=== PATIENT | female | born 1985 | race Caucasian/White ===

== ENCOUNTER 2017-01-27 03:24 | Emergency (ER) | payer BC ==
[2017-01-27 03:57] VITALS: BP 121/88
[2017-01-27] MEDS ORDERED: Sodium Chloride 0.9% 500 ML IV ONE (04:38)
--- NOTE | 2017-01-27 05:30 | EDM.PDOC ---
ED HPI RENAL/ - General Chief Complaint: Abdominal Pain Stated Complaint: LOWER ABDOMINAL PAIN Time Seen by Provider: 01/27/17 03:56 Source of Information: Reports: Patient, RN notes reviewed History Limitations: Reports: No limitations - History of Present Illness INITIAL COMMENTS - FREE TEXT/NARRATIVE: The patient states that she has had suprapubic pain, along with low back pain, urinary frequency and urinary urgency, for the past few weeks. A urinalysis was performed on 01/15/2017, which was reportedly dilute, as the patient had been drinking a lot of cranberry juice. No treatment was given. She then saw Svitlana Eckert this past 01/22/2017. An ultrasound was performed, although the patient does not have the results. The patient's symptoms have persisted. She took ibuprofen tonight, which did not help. She states that she has some dysuria, along with the urinary frequency and urgency. No recent fever, however, she has had chills. She had some nausea and vomiting tonight. She also had some diarrhea. No prior similar symptoms. - Related Data Allergies/ADRs: Allergies Allergy/AdvReac Type Severity Reaction Status Date / Time No Known Allergies Allergy Verified 01/27/17 03:57 Home Meds: Home Meds Acetaminophen [Tylenol] 650 mg PO Q4H PRN #50 tablet 07/12/14 [Rx] Docusate Sodium [Colace] 100 mg PO BID PRN #50 cap 07/12/14 [Rx] Ibuprofen [Motrin] 200 mg PO Q6H PRN #50 tablet 07/12/14 [Rx] Vit with Ca/FA/Iron [ Plus Iron] 1 each PO DAILY #100 tablet [Rx] Phenazopyridine [Pyridium] 100 mg PO BID #5 tablet 01/27/17 [Rx] Past Medical History - Past Surgical History HEENT Surgical History: Reports: Oral surgery (Marvin teeth extraction) Social & Family History - Tobacco Use Smoking Status *Q: Never Smoker Second Hand Smoke Exposure: No - Alcohol Use Alcohol Use History: No - Recreational Drug Use Recreational Drug Use: No - Living Situation & Occupation Living situation: Reports: , with spouse, with family (1 child) Occupation: employed (legal administrative secretary) ED ROS GENERAL - Review of Systems Review Of Systems: See Below Constitutional: Reports: no symptoms HEENT: Reports: No symptoms Respiratory: Reports: No Symptoms Cardiovascular: Reports: No symptoms Endocrine: Reports: no symptoms GI/Abdominal: Reports: No symptoms : Reports: dysuria, frequency, urgency. Denies: flank pain, hematuria Musculoskeletal: Reports: no symptoms Skin: Reports: no symptoms Neurological: Reports: No Symptoms Psychiatric: Reports: No symptoms Hematologic/Lymphatic: Reports: no symptoms Immunologic: Reports: no symptoms ED EXAM, RENAL/ - Physical Exam Exam: See Below Exam Limited By: No limitations General Appearance: alert, WD/WN, moderate distress (Appears uncomfortable) Respiratory/Chest: no respiratory distress, lungs clear, normal breath sounds, no accessory muscle use Cardiovascular: normal peripheral pulses, regular rate, rhythm, no edema, no gallop, no JVD, no murmur, no rub GI/Abdominal: normal bowel sounds, soft, no organomegaly, no distention, no abnormal bruit, no mass, tender (Mild to moderate, suprapubic only. Nontender elsewhere.) Back Exam: normal inspection, full range of motion. No: CVA tenderness (L), CVA tenderness (R) Course - Vital Signs Last Recorded V/S: Last Vital Signs Temp 36.6 C 01/27/17 03:53 Pulse 77 01/27/17 03:53 Resp 16 01/27/17 03:53 BP 121/88 01/27/17 03:53 Pulse Ox 100 01/27/17 03:53 - Orders/Labs/Meds Orders: Active Orders 24 hr Category Date Time Status Phenazopyridine [Pyridium] Med 01/27/17 07:12 Stat 100 mg PO ONETIME STA Labs: Laboratory Tests 01/27/17 01/27/17 Range/Units 05:25 05:25 Urine Color Yellow (Yellow) Urine Appearance Clear (Clear) Urine pH 6.5 (5.0-8.0) Ur Specific [place] 1.015 (1.005-1.030) Urine Protein Negative (Negative) Urine Glucose (UA) Negative (Negative) Urine Ketones Negative (Negative) Urine Occult Blood 2+ H (Negative) Urine Nitrite Negative (Negative) Urine Bilirubin Negative (Negative) Urine Urobilinogen 0.2 (0.2-1.0) Ur Leukocyte Esterase Negative (Negative) Urine RBC 5-10 H (0-5) /hpf Urine WBC Not seen (0-5) /hpf Ur Epithelial Cells 0-5 (0-5) /hpf Urine Bacteria Rare (FEW) /hpf Urine Mucus Not seen (FEW) /hpf Urine Yeast Not seen (NOT SEEN) Urine HCG, Qual Negative (NEGATIVE) Meds: Medications Discontinued Medications Generic Name Dose Route Start Last Admin Trade Name Arianne PRN Reason Stop Dose Admin Sodium Chloride 500 mls @ 1,000 mls/hr 01/27/17 04:38 01/27/17 04:43 Normal Saline IV 01/27/17 05:07 1,000 mls/hr .BOLUS ONE Administration - Re-Assessments/Exams Free Text/Narrative Re-Assessment/Exam: 01/27/17 07:12 Test results discussed with the patient and her . The patient's urinalysis is unremarkable. She does not have a UTI. I suspect that the patient has interstitial cystitis. For today's purposes, I will start her on Pyridium, and refer her to urology for definitive evaluation and diagnosis. Departure - Departure Time of Disposition: 07:13 Disposition: Home, Self-Care 01 Condition: fair Clinical Impression: Interstitial cystitis Referrals: Svitlana Eckert NP [Primary Care Provider] - George Gooden MD [Physician] - Forms: ED Department Discharge Additional Instructions: You were seen in the emergency room today for urinary urgency, dysuria, and frequency, along with suprapubic and low back pain. Workup in the ER included a bladder scan, urinalysis, and urine test. Your workup was unremarkable. You do not have a urinary tract infection. You are not . You MOST LIKELY have a condition called interstitial cystitis, where it feels like you have a urinary tract infection, but you do not. You have been started on a medicine called Pyridium, which should ease in your symptoms. Take one tablet every 12 hours, as prescribed. Stay adequately hydrated. Followup with the Urologist Dr. Gooden at the next available appointment. If any other problems, please do not hesitate to return to the ER. - My Orders Last 24 Hours: My Active Orders 01/27/17 07:12 Phenazopyridine [Pyridium] 100 mg PO ONETIME STA - Assessment/Plan Last 24 Hours: My Active Orders 01/27/17 07:12 Phenazopyridine [Pyridium] 100 mg PO ONETIME STA
[2017-01-27] MEDS ORDERED: Phenazopyridine 100 MG Tab PO STA (07:12)
[2017-01-27] MEDS ORDERED: Phenazopyridine 95 MG Tab ONE (07:27)
[2017-01-27] MEDS: Phenazopyridine 95 MG Tab PO SCH (07:28)
== END 2017-01-27 07:31 | disposition home or self-care (01) ==
LOC: JD.ED 03:24
DX: N30.10 Interstitial cystitis (chronic) without hematuria (principal); Z98.890 Other specified postprocedural states; Z79.899 Other long term (current) drug therapy
CPT/HCPCS: 81001; 81025; 96360; 96361; 99284; A9270; J7040; P9612; 99283

== ENCOUNTER 2018-05-09 04:37 | Emergency (ER) | payer BC, OTHER ==
[2018-05-09 04:48] VITALS: BP 140/93
[2018-05-09] MEDS ORDERED: Ondansetron 4 MG/2 ML SDV IVPUSH ONE (04:49)
[2018-05-09] MEDS ORDERED: Sodium Chloride 0.9% 10 ML Syringe FLUSH PRN (04:49)
[2018-05-09] MEDS ORDERED: HYDROmorphone 0.5 MG/0.5 ML SYRINGE IVPUSH ONE ×2 (04:50→06:57)
[2018-05-09] MEDS ORDERED: Ketorolac 30 MG/ML SDV IVPUSH ONE (04:50)
[2018-05-09] MEDS ORDERED: Sodium Chloride 0.9% 1,000 ML IV SCH (05:00)
--- NOTE | 2018-05-09 06:28 | EDM.PDOC ---
ED HPI GENERAL MEDICAL PROBLEM - General Chief Complaint: Flank Pain Stated Complaint: POSS KIDNEY STONE Time Seen by Provider: 05/09/18 04:49 Source of Information: Reports: Patient History Limitations: Reports: No Limitations - History of Present Illness INITIAL COMMENTS - FREE TEXT/NARRATIVE: The patient presents with left flank pain. She had some hematuria for a couple days and now this morning she woke up with left flank pain that radiates to her left lower abdomen. She has nausea but no vomiting. She has no dysuria. She had a kidney stone about a year ago on the right and she needed intervention. She has no fever, chills, cough, or chest pain. Onset: Sudden Duration: Minutes: Location: Reports: Back (Left flank) Quality: Reports: Sharp Severity: Moderate Improves with: Reports: None Worsens with: Reports: None Associated Symptoms: Reports: Nausea/Vomiting. Denies: Shortness of Breath Left Flank Pain Score (Numeric/FACES): 8 - Related Data Allergies Allergy/AdvReac Type Severity Reaction Status Date / Time No Known Allergies Allergy Verified 05/09/18 04:43 Home Meds: Home Meds Tamsulosin HCl [Flomax] 0.4 mg PO DAILY #7 cap.er.24h 05/09/18 [Rx] oxyCODONE HCl/Acetaminophen [Percocet 5-325 mg Tablet] 1 - 2 each PO Q6HR PRN # 20 tablet 05/09/18 [Rx] Past Medical History - Past Surgical History HEENT Surgical History: Reports: Oral Surgery Female Surgical History: Reports: Kidney stone extraction, Lithotripsy/ESWL Social & Family History - Tobacco Use Smoking Status *Q: Never Smoker - Living Situation & Occupation Living situation: Reports: , with Spouse, with Family Occupation: Employed ED ROS GENERAL - Review of Systems Review Of Systems: See Below Constitutional: Reports: No Symptoms HEENT: Reports: No Symptoms Respiratory: Reports: No Symptoms Cardiovascular: Reports: No Symptoms Endocrine: Reports: No Symptoms GI/Abdominal: Reports: Abdominal Pain, Nausea. Denies: Vomiting : Reports: Flank Pain (Left) ED EXAM, RENAL/ - Physical Exam Exam: See Below Exam Limited By: No Limitations General Appearance: Alert, No Apparent Distress Ears: Normal External Exam Nose: Normal Inspection Head: Atraumatic, Normocephalic Neck: Normal Inspection Respiratory/Chest: No Respiratory Distress, Lungs Clear, Normal Breath Sounds Cardiovascular: Regular Rate, Rhythm, No Edema, No Murmur GI/Abdominal: Soft, Non-Tender, No Organomegaly, No Mass Back Exam: CVA Tenderness (L) (Mild) Extremities: Normal Inspection Neurological: Alert, Oriented, No Motor/Sensory Deficits Course - Vital Signs Last Recorded V/S: Last Vital Signs Temp 97.4 F 05/09/18 04:44 Pulse 77 05/09/18 04:44 Resp 18 05/09/18 04:44 BP 140/93 H 05/09/18 04:44 Pulse Ox 100 05/09/18 04:44 - Orders/Labs/Meds Orders: Active Orders 24 hr Category Date Time Status Peripheral IV Care [RC] . DIRECTED Care 05/09/18 04:50 Active Abdomen Pelvis wo Cont [CT] Stat Exams 05/09/18 04:49 Taken UA W/MICROSCOPIC [URIN] Stat Lab 05/09/18 05:20 Ordered HYDROmorphone [Dilaudid] Med 05/09/18 06:57 Once 0.5 mg IVPUSH ONETIME ONE Sodium Chloride 0.9% [Normal Saline] 1,000 ml Med 05/09/18 05:00 Active IV ASDIRECTED Sodium Chloride 0.9% [Saline Flush] Med 05/09/18 04:49 Active 10 ml FLUSH ASDIRECTED PRN ED Antiemetic Medication Reflex [OM.PC] Stat Oth 05/09/18 04:49 Ordered Peripheral IV Insertion Adult [OM.PC] Stat Oth 05/09/18 04:49 Ordered Medication Orders Sodium Chloride (Normal Saline) 1,000 mls @ 125 mls/hr IV ASDIRECTED JUDE Last Admin: 05/09/18 05:09 Dose: 125 mls/hr Sodium Chloride (Saline Flush) 10 ml FLUSH ASDIRECTED PRN PRN Reason: Keep Vein Open Last Admin: 05/09/18 05:09 Dose: 10 ml Labs: Laboratory Tests 05/09/18 05/09/18 05/09/18 Range/Units 05:05 05:20 05:35 WBC (3.98-10.04) K/mm3 RBC (3.98-5.22) M/mm3 Hgb (11.2-15.7) gm/L Hct (34.1-44.9) % MCV (79.4-94.8) fl MCH (25.6-32.2) pg MCHC (32.2-35.5) g/dl RDW Std Deviation (36.4-46.3) fL Plt Count (182-369) K/mm3 MPV (9.4-12.3) fl Neut % (Auto) (34.0-71.1) % Lymph % (Auto) (19.3-51.7) % [place] % (Auto) (4.7-12.5) % Eos % (Auto) (0.7-5.8) Baso % (Auto) (0.1-1.2) % Neut # (Auto) (1.56-6.13) K/mm3 Lymph # (Auto) (1.18-3.74) K/mm3 [place] # (Auto) (0.24-0.36) K/mm3 Eos # (Auto) (0.04-0.36) K/mm3 Baso # (Auto) (0.01-0.08) K/mm3 Sodium 139 (136-145) mEq/L Potassium 3.5 (3.5-5.1) mEq/L Chloride 104 (98-107) mEq/L Carbon Dioxide 28 (21-32) mEq/L Anion Gap 10.5 (5-15) BUN 19 H (7-18) mg/dL Creatinine 1.0 (0.55-1.02) mg/dL Est Cr Clr Drug Dosing 74.21 mL/min Estimated GFR (MDRD) > 60 (>60) mL/min BUN/Creatinine Ratio 19.0 H (14-18) Glucose 105 (74-106) mg/dL Calcium 8.7 (8.5-10.1) mg/dL Total Bilirubin 0.3 (0.2-1.0) mg/dL AST 15 (15-37) U/L ALT 17 (14-59) U/L Alkaline Phosphatase 50 (46-116) U/L Total Protein 7.6 (6.4-8.2) g/dl Albumin 3.8 (3.4-5.0) g/dl Globulin 3.8 gm/dL Albumin/Globulin Ratio 1.0 (1-2) Lipase 150 (73-393) U/L HCG, Qual Negative (NEGATIVE) Urine Color Yellow (Yellow) Urine Appearance Slt cloudy H (Clear) Urine pH 6.0 (5.0-8.0) Ur Specific [place] 1.025 (1.005-1.030) Urine Protein 1+ H (Negative) Urine Glucose (UA) Negative (Negative) Urine Ketones Negative (Negative) Urine Occult Blood 3+ H (Negative) Urine Nitrite Negative (Negative) Urine Bilirubin Negative (Negative) Urine Urobilinogen 0.2 (0.2-1.0) Ur Leukocyte Esterase Trace H (Negative) Urine RBC 75-100 H (0-5) /hpf Urine WBC 0-5 (0-5) /hpf Ur Epithelial Cells 0-5 (0-5) /hpf Urine Bacteria Moderate H (FEW) /hpf Urine Mucus Moderate H (FEW) /hpf Urinalysis Comment 05/09/18 Range/Units 05:39 WBC 11.65 H (3.98-10.04) K/mm3 RBC 4.58 (3.98-5.22) M/mm3 Hgb 13.5 (11.2-15.7) gm/L Hct 39.7 (34.1-44.9) % MCV 86.7 (79.4-94.8) fl MCH 29.5 (25.6-32.2) pg MCHC 34.0 (32.2-35.5) g/dl RDW Std Deviation 38.3 (36.4-46.3) fL Plt Count 271 (182-369) K/mm3 MPV 9.8 (9.4-12.3) fl Neut % (Auto) 68.5 (34.0-71.1) % Lymph % (Auto) 22.6 (19.3-51.7) % [place] % (Auto) 6.1 (4.7-12.5) % Eos % (Auto) 2.6 (0.7-5.8) Baso % (Auto) 0.2 (0.1-1.2) % Neut # (Auto) 7.99 H (1.56-6.13) K/mm3 Lymph # (Auto) 2.63 (1.18-3.74) K/mm3 [place] # (Auto) 0.71 H (0.24-0.36) K/mm3 Eos # (Auto) 0.30 (0.04-0.36) K/mm3 Baso # (Auto) 0.02 (0.01-0.08) K/mm3 Sodium (136-145) mEq/L Potassium (3.5-5.1) mEq/L Chloride (98-107) mEq/L Carbon Dioxide (21-32) mEq/L Anion Gap (5-15) BUN (7-18) mg/dL Creatinine (0.55-1.02) mg/dL Est Cr Clr Drug Dosing mL/min Estimated GFR (MDRD) (>60) mL/min BUN/Creatinine Ratio (14-18) Glucose (74-106) mg/dL Calcium (8.5-10.1) mg/dL Total Bilirubin (0.2-1.0) mg/dL AST (15-37) U/L ALT (14-59) U/L Alkaline Phosphatase (46-116) U/L Total Protein (6.4-8.2) g/dl Albumin (3.4-5.0) g/dl Globulin gm/dL Albumin/Globulin Ratio (1-2) Lipase (73-393) U/L HCG, Qual (NEGATIVE) Urine Color (Yellow) Urine Appearance (Clear) Urine pH (5.0-8.0) Ur Specific [place] (1.005-1.030) Urine Protein (Negative) Urine Glucose (UA) (Negative) Urine Ketones (Negative) Urine Occult Blood (Negative) Urine Nitrite (Negative) Urine Bilirubin (Negative) Urine Urobilinogen (0.2-1.0) Ur Leukocyte Esterase (Negative) Urine RBC (0-5) /hpf Urine WBC (0-5) /hpf Ur Epithelial Cells (0-5) /hpf Urine Bacteria (FEW) /hpf Urine Mucus (FEW) /hpf Urinalysis Comment Meds: Medications Generic Name Dose Route Start Last Admin Trade Name Freq PRN Reason Stop Dose Admin Sodium Chloride 1,000 mls @ 125 mls/hr 05/09/18 05:00 05/09/18 05:09 Normal Saline IV 125 mls/hr ASDIRECTED JDUE Administration Sodium Chloride 10 ml 05/09/18 04:49 05/09/18 05:09 Saline Flush FLUSH 10 ml ASDIRECTED PRN Administration Keep Vein Open Discontinued Medications Generic Name Dose Route Start Last Admin Trade Name Freq PRN Reason Stop Dose Admin Hydromorphone HCl 0.5 mg 05/09/18 04:50 05/09/18 05:09 Dilaudid IVPUSH 05/09/18 04:51 0.5 mg ONETIME ONE Administration Ketorolac Tromethamine 30 mg 05/09/18 04:50 05/09/18 05:08 Toradol IVPUSH 05/09/18 04:51 30 mg ONETIME ONE Administration Ondansetron HCl 4 mg 05/09/18 04:49 05/09/18 05:08 Zofran IVPUSH 05/09/18 04:50 4 mg ONETIME ONE Administration - Re-Assessments/Exams Free Text/Narrative Re-Assessment/Exam: 05/09/18 06:33 I ordered an IV NS at 125ml/hr, zofran 4mg IV, dilaudid 0.5mg IV, toradol 30mg IV, labs, UA, and a CT of her abdomen and pelvis without contrast to look for a stone. Her WBC was a little elevated at 11.65. Her CMP was negative. Her HCG is negative. Her lipase was normal. He UA has blood but no UTI. Her CT shows mild left hydronephrosis with an obstructing 5mm stone in the distal ureter at the UVJ. 05/09/18 06:58 She is having more pain so I ordered dilaudid 0.5mg IV. I will get her on some flomax and percocet. She saw Dr Rivera before a urologist at [facility]. I will have her call his office and I will send the scans to [facility]. Departure - Departure Time of Disposition: 07:00 Disposition: Home, Self-Care 01 Condition: Good Clinical Impression: Ureteric colic, Ureteric calculus, Kidney stone on left side - Discharge Information Prescriptions: oxyCODONE HCl/Acetaminophen [Percocet 5-325 mg Tablet] 1 - 2 each PO Q6HR PRN # 20 tablet PRN Reason: Pain Tamsulosin HCl [Flomax] 0.4 mg PO DAILY #7 cap.er.24h Referrals: Svitlana Eckert NP [Primary Care Provider] - Cristopher Rivera MD [Ordering Only Provider] - Forms: ED Department Discharge Additional Instructions: Take the percocet every 6 hours as needed for pain. Take the flomax daily. Drink plenty of fluids. Call Dr Rivera's office today to make an appointment. I sent your scan to [facility] Arred[facility] so he can look at it. Pleas return if you are worse. - My Orders Last 24 Hours: My Active Orders 05/09/18 04:49 Abdomen Pelvis wo Cont [CT] Stat Sodium Chloride 0.9% [Saline Flush] 10 ml FLUSH ASDIRECTED PRN ED Antiemetic Medication Reflex [OM.PC] Stat Peripheral IV Insertion Adult [OM.PC] Stat 05/09/18 04:50 Peripheral IV Care [RC] . DIRECTED 05/09/18 05:00 Sodium Chloride 0.9% [Normal Saline] 1,000 ml IV ASDIRECTED 05/09/18 05:20 UA W/MICROSCOPIC [URIN] Stat 05/09/18 06:57 HYDROmorphone [Dilaudid] 0.5 mg IVPUSH ONETIME ONE - Assessment/Plan Last 24 Hours: My Active Orders 05/09/18 04:49 Abdomen Pelvis wo Cont [CT] Stat Sodium Chloride 0.9% [Saline Flush] 10 ml FLUSH ASDIRECTED PRN ED Antiemetic Medication Reflex [OM.PC] Stat Peripheral IV Insertion Adult [OM.PC] Stat 05/09/18 04:50 Peripheral IV Care [RC] . DIRECTED 05/09/18 05:00 Sodium Chloride 0.9% [Normal Saline] 1,000 ml IV ASDIRECTED 05/09/18 05:20 UA W/MICROSCOPIC [URIN] Stat 05/09/18 06:57 HYDROmorphone [Dilaudid] 0.5 mg IVPUSH ONETIME ONE
--- NOTE | 2018-05-09 07:08 | CT ---
CT abdomen and pelvis Technique: Multiple axial sections were obtained from above the dome of the diaphragm inferiorly through the pubic symphysis. Intravenous and oral contrast not utilized. Study has been performed as a ureteral stone protocol. Comparison: Prior CT abdomen and pelvis exam of 02/06/17 is available. Findings: Left-sided dilated ureter is seen. This finding is cause by 4 mm obstructing stone within the distal left ureter close to the UVJ. No other abnormal ureteral calculi are seen. Very small nonobstructing stone is noted within the mid to lower left kidney. No other renal calculi are seen. Visualized lung bases are clear. Calcified granuloma noted within the right lobe of the liver which is stable. Liver shows no additional abnormality. Spleen appears normal. Adrenal glands show no nodule. Pancreas shows no discrete abnormality. Gallbladder contains no calcified gallstones. Aorta shows no aneurysmal dilatation. No retroperitoneal adenopathy or mesenteric abnormalities are seen. No pelvic mass or adenopathy is seen. Fluid seen within the pelvis believed to be physiologic. No inflammatory change is seen. Appendix is seen which is normal in size. Bone window settings were reviewed which appear within normal limits for the patient's age. Impression: 1. 4 mm obstructing stone within the distal left ureter close to the UVJ. 2. Very small nonobstructing stone within the mid to lower left kidney. 3. Other incidental findings. Diagnostic code #3 Agree with preliminary report issued by [employer] ([facility] preliminary report dictated on 05/09/18, 7:15 AM Central Time)
== END 2018-05-09 07:30 | disposition home or self-care (01) ==
LOC: JD.ED 04:37
DX: N13.2 Hydronephrosis with renal and ureteral calculous obstruction (principal); Z79.899 Other long term (current) drug therapy
CPT/HCPCS: 36415; 74176; 80053; 81001; 83690; 84703; 85025; 96361; 96374; 96375; 96376; 99284; J1170; J1885; J2405; J7040; J7050

== ENCOUNTER 2019-10-29 12:06 | Inpatient (IN) | payer OTHER ==
[~2019-10-29 12:06] MED LIST: Bupivacaine 0.25% 10 ML SDV ONE
[2019-10-29] MEDS ORDERED: Nalbuphine 10 MG/1 ML Vial IVPUSH PRN (12:52)
[2019-10-29] MEDS ORDERED: Sodium Chloride 0.9% 10 ML Syringe FLUSH PRN (12:52)
[2019-10-29] MEDS ORDERED: Calcium Carbonate 500 MG Tab.Chew PO PRN (12:52)
[2019-10-29] MEDS ORDERED: Lidocaine 1% 50 ML MDV INJECT ONE (12:52)
[2019-10-29] MEDS ORDERED: Ondansetron 4 MG/2 ML SDV IVPUSH PRN ×2 (12:52→14:57)
[2019-10-29] MEDS ORDERED: Oxytocin/Lactated Ringers 10 UNIT/1,000 ML BAG IV SCH ×2 (13:00)
[2019-10-29] MEDS: Lactated Ringers 1,000 ML IV SCH ×2 (13:25→16:10)
[2019-10-29] MEDS ORDERED: fentaNYL/Bupivacaine/NS 2 MCG-0.125% 250 ML EPIDUR PRN (14:57)
[2019-10-29] MEDS ORDERED: ePHEDrine 50 MG/ML SDV IVPUSH PRN (14:57)
[2019-10-29] MEDS ORDERED: fentaNYL 100 MCG/2 ML SDV EPIDUR PRN (14:57)
--- NOTE | 2019-10-29 14:59 | PCM.PREANE ---
Preanesthetic Assessment - Anesthesia/Transfusion/Family Hx Anesthesia History: Prior Anesthesia Without Reaction Family History of Anesthesia Reaction: No Transfusion History: No Prior Transfusion(s) Intubation History: Unknown - Review of Systems General: No Symptoms Pulmonary: No Symptoms Cardiovascular: No Symptoms, Palpitations (with ), Dyspnea on Exertion (with ) Gastrointestinal: No Symptoms (GERD), Constipation Neurological: No Symptoms (back pain with ) Other: Reports: None, Easy Bruising, Depression, Anxiety - Physical Assessment NPO Status Date: 10/29/19 NPO Status Time: 15:30 Vital Signs: Last Vital Signs Temp 36.9 C 10/29/19 12:20 Pulse 75 10/29/19 12:20 Resp 16 10/29/19 12:20 BP 134/75 10/29/19 12:20 Pulse Ox 100 10/29/19 12:20 Height: 1.68 m Weight: 90.9 kg ASA Class: 2 Mental Status: Alert & Oriented x3 Airway Class: Mallampati = 2 Dentition: Reports: Normal Dentition, Caries Thyro-Mental Finger Breadths: 3 Mouth Opening Finger Breadths: 3 ROM/Head Extension: Full Lungs: Clear to Auscultation, Normal Respiratory Effort Cardiovascular: Regular Rate, Regular Rhythm, No Murmurs - Lab Values: Laboratory Last Values WBC 10.82 K/mm3 (3.98-10.04) H 10/29/19 13:10 RBC 4.32 M/mm3 (3.98-5.22) 10/29/19 13:10 Hgb 12.7 gm/dl (11.2-15.7) 10/29/19 13:10 Hct 37.6 % (34.1-44.9) 10/29/19 13:10 MCV 87.0 fl (79.4-94.8) 10/29/19 13:10 MCH 29.4 pg (25.6-32.2) 10/29/19 13:10 MCHC 33.8 g/dl (32.2-35.5) 10/29/19 13:10 RDW Std Deviation 40.6 fL (36.4-46.3) 10/29/19 13:10 Plt Count 197 K/mm3 (182-369) 10/29/19 13:10 MPV 10.7 fl (9.4-12.3) 10/29/19 13:10 Neut % (Auto) 74.1 % (34.0-71.1) H 10/29/19 13:10 Lymph % (Auto) 19.3 % (19.3-51.7) 10/29/19 13:10 [place] % (Auto) 5.5 % (4.7-12.5) 10/29/19 13:10 Eos % (Auto) 0.6 (0.7-5.8) L 10/29/19 13:10 Baso % (Auto) 0.2 % (0.1-1.2) 10/29/19 13:10 Neut # (Auto) 8.02 K/mm3 (1.56-6.13) H 10/29/19 13:10 Lymph # (Auto) 2.09 K/mm3 (1.18-3.74) 10/29/19 13:10 [place] # (Auto) 0.59 K/mm3 (0.24-0.36) H 10/29/19 13:10 Eos # (Auto) 0.07 K/mm3 (0.04-0.36) 10/29/19 13:10 Baso # (Auto) 0.02 K/mm3 (0.01-0.08) 10/29/19 13:10 Above labs reviewed and noted and within acceptable ranges to proceed with epidural if desired. - Allergies Allergies/Adverse Reactions: Allergies Allergy/AdvReac Type Severity Reaction Status Date / Time No Known Allergies Allergy Verified 10/29/19 13:06 - Acknowledgements Anesthesia Type Planned: Epidural Pt an Appropriate Candidate for the Planned Anesthesia: Yes Alternatives and Risks of Anesthesia Discussed w Pt/Guardian: Yes Pt/Guardian Understands and Agrees with Anesthesia Plan: Yes PreAnesthesia Questionnaire Gastrointestinal History: Reports: GERD Genitourinary History: Reports: Renal Calculus [employer]ATOR History: Reports: Psychiatric History: Reports: Anxiety, Depression, Other (See Below) Other Psychiatric History: history of depression - Past Surgical History HEENT Surgical History: Reports: Oral Surgery Female Surgical History: Reports: Kidney stone extraction, Lithotripsy/ESWL - SUBSTANCE USE Smoking Status *Q: Never Smoker Recreational Drug Use History: No - HOME MEDS Home Medications: Home Meds Folic Acid 0.4 mg PO BEDTIME 10/29/19 [History] [place]-3/DHA/Epa/Fish Oil [Fish Oil 1,000 mg Softgel] 1 each PO BEDTIME 10/29/19 [History] No122/Iron/Folic Acid [ Multi Tablet] 1 each PO BEDTIME [History] - CURRENT (IN HOUSE) MEDS Current Meds: Current Medications Calcium Carbonate/Glycine (Tums) 1,000 mg PO Q2H PRN PRN Reason: Indigestion Lactated Ringer's (Ringers, Lactated) 1,000 mls @ 100 mls/hr IV ASDIRECTED JUDE Last Admin: 10/29/19 13:25 Dose: 50 mls/hr Oxytocin/Lactated Ringer's (Pitocin In Lr 10 Units/1,000 Ml) 10 unit in 1,000 mls @ 12 mls/hr IV TITRATE JUDE; Protocol Last Titration: 10/29/19 14:32 Dose: 6 munits/min, 36 mls/hr Oxytocin/Lactated Ringer's (Pitocin In Lr 10 Units/1,000 Ml) 10 unit in 1,000 mls @ 500 mls/hr IV .CONTINUOUS JUDE Nalbuphine HCl (Nubain) 10 mg IVPUSH Q2H PRN PRN Reason: Pain Ondansetron HCl (Zofran) 4 mg IVPUSH Q4H PRN PRN Reason: Nausea/Vomiting Sodium Chloride (Saline Flush) 10 ml FLUSH ASDIRECTED PRN PRN Reason: Keep Vein Open Discontinued Medications Lidocaine HCl (Xylocaine 1%) 20 ml INJECT ONETIME ONE Stop: 10/29/19 12:53
--- NOTE | 2019-10-29 17:43 | PCM.SN ---
- Free Text/Narrative Note: Anesthesia Note: Anesthesia reassessed patient regarding right scapular numbness, along with some right breast numbness(minimal). Patient reminded to keep HOB up at all times, and to inform nurse if numbness becomes more dense. VSS, no contraction pain noted, patient otherwise stable and doing well. [employer]
[2019-10-29] MEDS ORDERED: Acetaminophen 325 MG Tab PO PRN (21:01)
[2019-10-29] MEDS ORDERED: Witch Hazel Medicated Pads 40/Jar TOP PRN (21:01)
[2019-10-29] MEDS ORDERED: Benzocaine/Menthol 20%-0.5% Spray 56 GM Canister TOP PRN (21:01)
[2019-10-29] MEDS ORDERED: Docusate Sodium 100 MG Cap PO PRN (21:01)
--- NOTE | 2019-10-29 21:07 | PCM.LDHP ---
L&D History of Present Illness - General Date of Service: 10/29/19 Admit Problem/Dx: Patient Status Order with Admit Dx/Problem 10/29/19 12:54 Patient Status [ADT] Routine Admission Diagnosis/Problem Admission Diagnosis/Problem Term 10/29/19 20:58 Desiree is a 34-year-old 2 para 1001 white female admitted for elective induction of labor at 40-3/7 weeks gestational age with an LYLE of 10/26/2019. Source of Information: Patient History Limitations: Reports: No Limitations - History of Present Illness Introduction:: Desiree is a 34-year-old 2 para 1001 white female admitted for elective induction of labor at 40-3/7 weeks gestational age with an LYLE of 10/26/2019. Upon admission her cervix was 2+ centimeters dilated, as 3 station, soft consistency, mid position 80% effaced, cephalic presentation with bulging bag of mason. She was started on Pitocin and bring the head against the cervix and then artificial rupture membranes was undertaken. MOTORMAN/WOMAN history: Patient is a 2 para 1001 female with an LYLE of 2018 as based upon an early ultrasound on 7 4/7 weeks gestational age on 2018. Patient was seen early in the and was followed regularly during the . Her weight gain was 165.2 pounds up to 198 pounds for 33 pound weight gain. Her vital signs were stable throughout the course. This and obstetric history includes a menarche at approximate age 10. Positive hCG was on 02/14/2019. Cycles fairly regular. Her LMP was uncertain. Her only other delivery was on 07/10/2014 at 41 weeks gestational age after 8 hours of labor. 7 lbs. 13 oz. female infant named Martir Mandel born via normal spontaneous vaginal delivery. course group B strep screen is negative. She has allergic rhinitis history and anxiety history. [place] depression screening score on was 12/30. Patient is desiring epidural in labor and delivery. She has been on fluoxetine in the past and would like to resume that immediately upon delivery. Her risk factors include age of 34. History of kidney stones and history of depression. laboratory testing blood type B-POSITIVE WITH NEGATIVE SCREEN. FIRST HEMOGLOBIN WAS 12.7 G/DL AND PLATELETS ARE 273,000. SHE IS RUBELLA IMMUNE. RPR IS NONREACTIVE. HEPATITIS B SURFACE ANTIGEN AND HIV ASSAYS WERE BOTH NEGATIVE. GONORRHEA AND CHLAMYDIA ASSAYS WERE BOTH NEGATIVE. SECOND TRIMESTER LABORATORY TESTING SHOWED A HEME GRAMS PER DECILITER AND PLATELETS OF 226,000. ONE-HOUR GTT WAS 116. HER THIRD TRIMESTER RPR WAS NONREACTIVE. GROUP B STREP WAS NEGATIVE. ALLERGIES NONE MEDICATIONS: 1. METHYL FOLATE 400 G PER DAY 2. VITAMINS 1 DAILY PAST MEDICAL HISTORY: 1. HISTORY OF NORMAL SPONTANEOUS VAGINAL DELIVERY 07/10/2014 2. HISTORY OF KIDNEY STONES REMOVED IN 2016. 3. RECENT HISTORY FOR TREATMENT OF DEPRESSION DECEMBER 2018. HAD DEPRESSION AFTER HER LAST Past surgical history: 1. Removal of kidney stone. Family history: Other is alive and well. Father is alive but has high blood pressure on medication. One brother is alive but has high blood pressure on medication. Maternal grandmother is alive and has a history of breast cancer with treatment. She also is diabetic. Maternal grandfather is secondary to heart disease. Paternal grandmother is alive and well. She was a twin. Her grandfather is at age 60 from diabetic complications. There is no other family history of cancer, bleeding, blood clotting disorders, anesthesia-related problems or related problems. Social history: Patient is . is [place]. She lives in [place], [place]. She does not use any significant amounts of alcohol, drugs or tobacco. Review of systems: In general patient has no complaints. Patient reports good activity. Skin: Negative Lungs: No infectious symptoms or shortness of breath Cardiovascular: No chest pain or exercise intolerance Breasts: Changes associated . Patient plans to pump and possibly breast -feed GI: Negative : Changes associated with including increased fundal height. Musculoskeletal: Negative Neurological: Negative In general the patient is well-developed, well-nourished, pleasant female of stated age in no acute distress. Skin is warm dry without lesions. HEENT, neck and back within normal limits. Lungs are clear with good breath sounds in all lung jacques. Cardiovascular exam shows regular and rhythm without murmurs. Abdomen is gravid with last fundal height in clinic at 39.5 cm. Breast exam is deferred having been done at first visit and found to be normal. Genital cervical exam as outlined in history of present illness. Extremities and neurological exam are grossly within normal limits. Pain Score: 5 - Related Data Allergies/Adverse Reactions: Allergies Allergy/AdvReac Type Severity Reaction Status Date / Time No Known Allergies Allergy Verified 10/29/19 13:06 Home Medications: Home Meds Folic Acid 0.4 mg PO BEDTIME 10/29/19 [History] [place]-3/DHA/Epa/Fish Oil [Fish Oil 1,000 mg Softgel] 1 each PO BEDTIME 10/29/19 [History] No122/Iron/Folic Acid [ Multi Tablet] 1 each PO BEDTIME [History] Past Medical History Gastrointestinal History: Reports: GERD Genitourinary History: Reports: Renal Calculus MOTORMAN/WOMAN History: Reports: Psychiatric History: Reports: Anxiety, Depression, Other (See Below) Other Psychiatric History: history of depression - Past Surgical History HEENT Surgical History: Reports: Oral Surgery Female Surgical History: Reports: Kidney stone extraction, Lithotripsy/ESWL Social & Family History - Family History Family Medical History: Noncontributory - Tobacco Use Smoking Status *Q: Never Smoker - Recreational Drug Use Recreational Drug Use: No - Living Situation & Occupation Living situation: Reports: , with Spouse, with Family Occupation: Employed H&P Review of Systems - Review of Systems: Review Of Systems: See Below L&D Exam - Exam Exam: See Below - Vital Signs Vital Signs: Last Vital Signs Temp 36.9 C 10/29/19 12:20 Pulse 75 10/29/19 12:20 Resp 16 10/29/19 12:20 BP 134/75 10/29/19 12:20 Pulse Ox 100 10/29/19 12:20 Weight: 90.9 kg - Patient Data Lab Results Last 24 hrs: Laboratory Results - last 24 hr 10/29/19 Range/Units 13:10 WBC 10.82 H (3.98-10.04) K/mm3 RBC 4.32 (3.98-5.22) M/mm3 Hgb 12.7 (11.2-15.7) gm/dl Hct 37.6 (34.1-44.9) % MCV 87.0 (79.4-94.8) fl MCH 29.4 (25.6-32.2) pg MCHC 33.8 (32.2-35.5) g/dl RDW Std Deviation 40.6 (36.4-46.3) fL Plt Count 197 (182-369) K/mm3 MPV 10.7 (9.4-12.3) fl Neut % (Auto) 74.1 H (34.0-71.1) % Lymph % (Auto) 19.3 (19.3-51.7) % [place] % (Auto) 5.5 (4.7-12.5) % Eos % (Auto) 0.6 L (0.7-5.8) Baso % (Auto) 0.2 (0.1-1.2) % Neut # (Auto) 8.02 H (1.56-6.13) K/mm3 Lymph # (Auto) 2.09 (1.18-3.74) K/mm3 Randolph # (Auto) 0.59 H (0.24-0.36) K/mm3 Eos # (Auto) 0.07 (0.04-0.36) K/mm3 Baso # (Auto) 0.02 (0.01-0.08) K/mm3 Result Diagrams: 10/29/19 13:10 Problem List Initiated/Reviewed/Updated: Yes Orders Last 24hrs: Active Orders 24 hr Category Date Time Status Patient Status Manage Transfer [TRANSFER] Routine ADT 10/29/19 20:55 Ordered Patient Status [ADT] Routine ADT 10/29/19 12:54 Active Activity as Tolerated [RC] PFP Care 10/29/19 12:52 Active Communication Order [RC] ASDIRECTED Care 10/29/19 12:52 Active Communication Order [RC] ASDIRECTED Care 10/29/19 12:52 Active Communication Order [RC] ASDIRECTED Care 10/29/19 12:52 Active Communication Order [RC] ASDIRECTED Care 10/29/19 12:52 Active Notify Provider [RC] ASDIRECTED Care 10/29/19 12:52 Active Notify Provider [RC] ASDIRECTED Care 10/29/19 14:57 Active Notify Provider [RC] PFP Care 10/29/19 12:52 Active Notify Provider [RC] PRN Care 10/29/19 12:52 Active Peripheral IV Care [RC] Q2HR Care 10/29/19 12:54 Active Pump Management, Intrathecal [RC] ASDIRECTED Care 10/29/19 12:55 Active Urinary Catheter Assessment [RC] ASDIRECTED Care 10/29/19 12:52 Active Regular Diet [DIET] Diet 10/29/19 Lunch Active BLOOD BANK HOLD SPECIMEN [BBK] Stat Lab 10/29/19 13:10 Received RAPID PLASMA REAGIN,RPR [CHEM] Stat Lab 10/29/19 13:10 Received Bupivicaine/fentaNYL/NS [fentaNYL/Bupivacaine/NS 2 MCG- Med 10/29/19 14:57 Active 0.125% 250 ML] 0 ml EPIDUR CONTINUOUS PRN Calcium Carbonate [Tums] Med 10/29/19 12:52 Active 1,000 mg PO Q2H PRN Lactated Ringers [Ringers, Lactated] 1,000 ml Med 10/29/19 13:00 Active IV ASDIRECTED Nalbuphine [Nubain] Med 10/29/19 12:52 Active 10 mg IVPUSH Q2H PRN Ondansetron [Zofran] Med 10/29/19 14:57 Active 4 mg IVPUSH ONETIME PRN Ondansetron [Zofran] Med 10/29/19 12:52 Active 4 mg IVPUSH Q4H PRN Oxytocin/Lactated Ringers [Pitocin in LR 10 Units/1,000 Med 10/29/19 13:00 Active ML] 10 unit in 1,000 ml IV .CONTINUOUS Oxytocin/Lactated Ringers [Pitocin in LR 10 Units/1,000 Med 10/29/19 13:00 Active ML] 10 unit in 1,000 ml IV TITRATE Sodium Chloride 0.9% [Saline Flush] Med 10/29/19 12:52 Active 10 ml FLUSH ASDIRECTED PRN ePHEDrine [ePHEDrine sulfate] Med 10/29/19 14:57 Active 5 mg IVPUSH ASDIRECTED PRN fentaNYL [Sublimaze] Med 10/29/19 14:57 Active 100 mcg EPIDUR Q3H PRN DVT/VTE Prophylaxis Reflex [OM.PC] Routine Oth 10/29/19 12:55 Ordered Electronic Heart Tones Ext w TOCO [WOMSER] Oth 10/29/19 12:52 Ordered Routine Electronic Heart Tones Internal [WOMSER] Per Unit Oth 10/29/19 12:52 Ordered Routine Peripheral IV Insertion Adult [OM.PC] Routine Oth 10/29/19 12:52 Ordered Resuscitation Status Routine Resus Stat 10/29/19 12:52 Ordered Medication Orders Calcium Carbonate/Glycine (Tums) 1,000 mg PO Q2H PRN PRN Reason: Indigestion Ephedrine Sulfate (Ephedrine Sulfate) 5 mg IVPUSH ASDIRECTED PRN PRN Reason: Hypotension Fentanyl (Sublimaze) 100 mcg EPIDUR Q3H PRN PRN Reason: Pain Last Admin: 10/29/19 15:49 Dose: 100 mcg Fentanyl/Bupivacaine HCl (Fentanyl/Bupivacaine/Ns 2 Mcg-0.125% 250 Ml) 0 ml EPIDUR CONTINUOUS PRN PRN Reason: Pain Last Admin: 10/29/19 15:50 Dose: 250 ml Lactated Ringer's (Ringers, Lactated) 1,000 mls @ 100 mls/hr IV ASDIRECTED JUDE Last Admin: 10/29/19 16:10 Dose: 125 mls/hr Infusion: 10/29/19 16:10 Dose: 50 mls/hr Admin: 10/29/19 13:25 Dose: 50 mls/hr Oxytocin/Lactated Ringer's (Pitocin In Lr 10 Units/1,000 Ml) 10 unit in 1,000 mls @ 12 mls/hr IV TITRATE JUDE; Protocol Last Titration: 10/29/19 14:32 Dose: 6 munits/min, 36 mls/hr Titration: 10/29/19 14:02 Dose: 4 munits/min, 24 mls/hr Admin: 10/29/19 13:25 Dose: 2 munits/min, 12 mls/hr Oxytocin/Lactated Ringer's (Pitocin In Lr 10 Units/1,000 Ml) 10 unit in 1,000 mls @ 500 mls/hr IV .CONTINUOUS JUDE Nalbuphine HCl (Nubain) 10 mg IVPUSH Q2H PRN PRN Reason: Pain Ondansetron HCl (Zofran) 4 mg IVPUSH Q4H PRN PRN Reason: Nausea/Vomiting Last Admin: 10/29/19 17:25 Dose: 4 mg Ondansetron HCl (Zofran) 4 mg IVPUSH ONETIME PRN PRN Reason: Nausea/Vomiting Sodium Chloride (Saline Flush) 10 ml FLUSH ASDIRECTED PRN PRN Reason: Keep Vein Open Assessment/Plan Comment:: 1.40-3/7 week intrauterine admitted for elective induction of labor 2. Group B strep screen negative no progress 3. Patient desires epidural in labor 4. Patient plans to breast-feed 5. Patient is rubella immune. She had her flu shot on 08/13/2019. She had her T dap immunization on 08/13/2019. Plan: 1. Anticipate normal spontaneous vaginal delivery 2. Epidural when necessary for pain 3. Support breast-feeding 4. CBC and RPR on admission per protocol.
--- NOTE | 2019-10-29 21:14 | PCM.SN ---
- Free Text/Narrative Note: Delivery note: Desiree is a 34-year-old 2 now para 2002 white female who is admitted at 40-3/7 weeks gestational age on 10/29/2019 LYLE of 10/26/2019 for elective induction of labor. was 2+ and is dilated, 80% effaced on admission. She underwent Pitocin induction of labor with artificial rupture membranes augmentation. Desiree had an epidural for analgesia during the course of labor. She had artificial rupture membranes with resultant clear amniotic fluid. She progressed rapidly to complete cervical dilation by 8 hours after admission. She proceeded to push 2 contractions and delivered a viable, dangelo, male with Apgars of 8 and 9, a weight of 3330 g (7 pounds 5.5 ounces), a length of 20.0 inches in a left occiput anterior position. She incurred a first- degree vaginal/perineal laceration was repaired with 3-0 Monocryl suture in one [id number] suture. Epidural was used for anesthesia. She tolerated this well. Cord blood was obtained. The umbilical cord had 3 vessels present within it. Placenta delivered in a Kim presentation, appeared intact and complete and was discarded per patient desire. The baby was noted to have 2 umbilicated on top of his head. Etiology of these was unknown. They were not bleeding and appeared stable. Not appear to be lacerations. [employer] Furnace Tender on-call was notified of these lesions. It appeared be nontender evidence of any infectious process involving the mother or the baby. Pitocin was increased to 500 mL an hour immediately upon delivery of the baby. He was placed on mom's abdomen, nose and mouth bulb suctioned. Cord was allowed to pulsate for 1-2 minutes before clamping. EBL was 100 mL. Patient plans to pump and breast-feeding. Condition: Good.
[2019-10-29] MEDS ORDERED: Magnesium Hydroxide 400 MG/5 ML Susp 30 ML Cup PO ONE (21:32)
[2019-10-29] MEDS: Ibuprofen 600 MG Tab PO PRN (22:20)
[2019-10-30] MEDS: FLUoxetine 10 MG Cap PO SCH ×3 (01:37→21:32)
[2019-10-30] MEDS: Ibuprofen 600 MG Tab PO PRN ×3 (04:14→20:47)
--- NOTE | 2019-10-30 07:42 | PCM48HPAN ---
Post Anesthesia Note - EVALUATION WITHIN 48HRS OF ANESTHETIC Vital Signs in Normal Range: Yes Patient Participated in Evaluation: Yes Respiratory Function Stable: Yes Airway Patent: Yes Cardiovascular Function Stable: Yes Hydration Status Stable: Yes Pain Control Satisfactory: Yes Nausea and Vomiting Control Satisfactory: Yes Mental Status Recovered: Yes Vital Signs: Last Vital Signs Temp 97.7 F 10/30/19 04:17 Pulse 76 10/30/19 04:17 Resp 15 10/30/19 04:17 BP 104/74 10/30/19 04:17 Pulse Ox 97 10/30/19 04:17
[2019-10-30] MEDS: Prenatal Multivitamin with Calcium/Folic Acid/Iron Tab PO SCH (08:45)
--- NOTE | 2019-10-30 21:23 | PCM.SN ---
- Free Text/Narrative Note: note: Patient is doing well in the period. Minimal lochia, voiding well, ambulated without problems. Nursing without concerns. Patient is afebrile, vital signs are stable Abdomen is flat, soft, uterus is below the umbilicus and is firm and nontender. Legs are nontender. Assessment: recovery going well. Plan: Routine care. Patient be discharged home within the next 24-48 hours.
[2019-10-31] MEDS: Ibuprofen 600 MG Tab PO PRN ×2 (02:34→07:47)
--- NOTE | 2019-10-31 05:54 | PCM.DCSUM1 ---
Discharge Summary - Hospital Course Free Text/Narrative:: Desiree is a 34-year-old 2 now para 2002 white female who is admitted at 40-3/7 weeks gestational age on 10/29/2019 LYLE of 10/26/2019 for elective induction of labor. was 2+ and is dilated, 80% effaced on admission. She underwent Pitocin induction of labor with artificial rupture membranes augmentation. Desiree had an epidural for analgesia during the course of labor. She had artificial rupture membranes with resultant clear amniotic fluid. She progressed rapidly to complete cervical dilation by 8 hours after admission. She proceeded to push 2 contractions and delivered a viable, dangelo, male infant with Apgars of 8 and 9, a weight of 3330 g (7 pounds 5.5 ounces), a length of 20.0 inches in a left occiput anterior position. She incurred a first- degree vaginal/perineal laceration was repaired with 3-0 Monocryl suture in one [id number] suture. Epidural was used for anesthesia. She tolerated this well. Cord blood was obtained. The umbilical cord had 3 vessels present within it. Placenta delivered in a Kim presentation, appeared intact and complete and was discarded per patient desire. The baby was noted to have 2 umbilicated on top of his head. Etiology of these was unknown. They were not bleeding and appeared stable. Not appear to be lacerations. Fire Prevention Forester on-call was notified of these lesions. It appeared be nontender evidence of any infectious process involving the mother or the baby. Pitocin was increased to 500 mL an hour immediately upon delivery of the baby. He was placed on mom's abdomen, nose and mouth bulb suctioned. Cord was allowed to pulsate for 1-2 minutes before clamping. EBL was 100 mL. Patient plans to pump and breast-feeding. patient is doing well. She has minimal lochia, voiding well and is nursing without problems. Desiring discharge home. Condition: Good. Diagnosis: Stroke: No - Discharge Data Discharge Date: 10/31/19 Discharge Disposition: Home, Self-Care 01 Condition: Good - Referral to Home Health Primary Care Physician: Volodymyr Villareal MD - Patient Instructions Diet: Regular Diet as Tolerated (Nursing diet with increase calories and calcium is recommended) Activity: As Tolerated (No intercourse or tampons until bleeding resolves) Driving: May Drive Today Showering/Bathing: May Shower (May take a bath) Notify Provider of: Fever, Increased Pain, Swelling and Redness, Nausea and/or Vomiting - Discharge Plan Home Medications: Home Meds [place]-3/DHA/Epa/Fish Oil [Fish Oil 1,000 mg Softgel] 1 each PO BEDTIME 10/29/19 [History] No122/Iron/Folic Acid [ Multi Tablet] 1 each PO BEDTIME [History] Acetaminophen [Tylenol] 650 mg PO Q4H PRN tablet 10/31/19 [Rx] FLUoxetine [PROzac] 10 mg PO DAILY cap 10/31/19 [Rx] Ibuprofen [Motrin] 600 mg PO Q4H PRN tablet 10/31/19 [Rx] Patient Handouts: Depression, Baby Blues, Suppressing Your Milk Supply, Vaginal Delivery, Care After, Anxiety Referrals: Volodymyr Villareal MD [Primary Care Provider] - (Return to clinicDr. Villareal2 weeks.) - Discharge Summary/Plan Comment DC Time >30 min.: No Discharge Summary/Plan Comment: Discharge instructions: 1. Discharge home 2. Diet, activity and follow-up discussed with patient. Recommend nursing diet with increased calories and calcium. 3. Precautions given concern increased pain, bleeding, temperature, signs/ symptoms of DVT/PE. 4. Medications per home medication was printed, discussed with and given to the patient. 5. Return to clinic-Dr. Villareal-[facility] in 2 weeks. Diagnosis: Term -delivered Condition: Good - Patient Data Vitals - Most Recent: Last Vital Signs Temp 36.6 C 10/31/19 02:36 Pulse 76 10/31/19 02:36 Resp 14 10/31/19 02:36 BP 92/72 10/31/19 02:36 Pulse Ox 98 10/31/19 02:36 Weight - Most Recent: 90.9 kg I&O - Last 24 hours: Intake & Output 10/30/19 10/30/19 10/31/19 14:59 22:59 06:59 Intake Total 300 Balance 300 Med Orders - Current: Current Medications Acetaminophen (Tylenol) 650 mg PO Q4H PRN PRN Reason: mild pain or fever Benzocaine/Menthol (Dermoplast Pain Relief [place]) 0 gm TOP ASDIRECTED PRN PRN Reason: Perineal Comfort Measure Last Admin: 10/29/19 22:21 Dose: 1 applic Docusate Sodium (Colace) 100 mg PO BID PRN PRN Reason: Constipation Fluoxetine HCl (Prozac) 10 mg PO DAILY [facility] Last Admin: 10/30/19 09:00 Dose: 10 mg Ibuprofen (Motrin) 600 mg PO Q4H PRN PRN Reason: Mild pain or fever Last Admin: 10/31/19 02:34 Dose: 600 mg Prenat Multivit/[place]/Iron/Folic Ac ( Plus Iron) 1 each PO DAILY JUDE Last Admin: 10/30/19 08:45 Dose: 1 each [place] (Tucks) 1 pad TOP ASDIRECTED PRN PRN Reason: Pain Last Admin: 10/29/19 22:21 Dose: 1 applic Discontinued Medications Bupivacaine HCl (Sensorcaine-Mpf 0.25%) 10 ml .ROUTE .RUST-MED ONE Stop: 10/29/19 00:01 Calcium Carbonate/Glycine (Tums) 1,000 mg PO Q2H PRN PRN Reason: Indigestion Ephedrine Sulfate (Ephedrine Sulfate) 5 mg IVPUSH ASDIRECTED PRN PRN Reason: Hypotension Fentanyl (Sublimaze) 100 mcg EPIDUR Q3H PRN PRN Reason: Pain Last Admin: 10/29/19 15:49 Dose: 100 mcg Fentanyl/Bupivacaine HCl (Fentanyl/Bupivacaine/Ns 2 Mcg-0.125% 250 Ml) 0 ml EPIDUR CONTINUOUS PRN PRN Reason: Pain Last Admin: 10/29/19 15:50 Dose: 250 ml Fluoxetine HCl (Prozac) 10 mg PO BEDTIME JUDE Last Admin: 10/30/19 21:32 Dose: Not Given Lactated Ringer's (Ringers, Lactated) 1,000 mls @ 100 mls/hr IV ASDIRECTED JUDE Last Admin: 10/29/19 16:10 Dose: 125 mls/hr Oxytocin/Lactated Ringer's (Pitocin In Lr 10 Units/1,000 Ml) 10 unit in 1,000 mls @ 12 mls/hr IV TITRATE JUDE; Protocol Last Titration: 10/29/19 14:32 Dose: 6 munits/min, 36 mls/hr Oxytocin/Lactated Ringer's (Pitocin In Lr 10 Units/1,000 Ml) 10 unit in 1,000 mls @ 500 mls/hr IV .CONTINUOUS JUDE Lidocaine HCl (Xylocaine 1%) 20 ml INJECT ONETIME ONE Stop: 10/29/19 12:53 Last Admin: 10/30/19 21:32 Dose: Not Given Magnesium Hydroxide (Milk Of Magnesia) 30 ml PO ONETIME ONE Stop: 10/29/19 21:33 Last Admin: 10/29/19 22:20 Dose: 30 ml Nalbuphine HCl (Nubain) 10 mg IVPUSH Q2H PRN PRN Reason: Pain Ondansetron HCl (Zofran) 4 mg IVPUSH Q4H PRN PRN Reason: Nausea/Vomiting Last Admin: 10/29/19 17:25 Dose: 4 mg Ondansetron HCl (Zofran) 4 mg IVPUSH ONETIME PRN PRN Reason: Nausea/Vomiting Sodium Chloride (Saline Flush) 10 ml FLUSH ASDIRECTED PRN PRN Reason: Keep Vein Open
[2019-10-31] MEDS: Prenatal Multivitamin with Calcium/Folic Acid/Iron Tab PO SCH ×2 (07:47→10:58)
[2019-10-31] MEDS: FLUoxetine 10 MG Cap PO SCH ×2 (07:56→10:58)
[2019-10-31 08:43] VITALS: BP 125/99; PULSE 70
== END 2019-10-31 11:47 | disposition home or self-care (01) | DRG 807 ==
LOC: JD.OB 12:06 → OBSVTOIN 20:34 → JD.OB 20:34
PROVIDERS: ADMIT Obstetrics & Gynecology; ATTEND Obstetrics & Gynecology
PROC: 10E0XZZ Delivery of Products of Conception, External Approach (ICD-10-PCS; principal; 2019-10-29)
PROC: 10907ZC Drainage of Amniotic Fluid, Therapeutic from Products of Conception, Via Natural or Artificial Opening (ICD-10-PCS; 2019-10-29)
PROC: 3E033VJ Introduction of Other Hormone into Peripheral Vein, Percutaneous Approach (ICD-10-PCS; 2019-10-29)
PROC: 0HQ9XZZ Repair Perineum Skin, External Approach (ICD-10-PCS; 2019-10-29)
PROC: 3E0R3BZ Introduction of Anesthetic Agent into Spinal Canal, Percutaneous Approach (ICD-10-PCS; 2019-10-29)
DX: O48.0 Post-term pregnancy (principal); Z37.0 Single live birth; O70.0 First degree perineal laceration during delivery; Z3A.40 40 weeks gestation of pregnancy
CPT/HCPCS: 01967; 36415; 51702; 59025; 59409; 85025; 86592; A9270-GY; J2405; J2590; J3010; J3490; J7120